=== PATIENT | male | born 2000 | race Caucasian/White ===

== ENCOUNTER 2019-04-15 22:59 | Emergency (ER) | payer BC, OTHER ==
[~2019-04-15] VITALS: Ht 180.3 cm; Wt 79.4 kg
[2019-04-15 23:06] VITALS: Ht 180.3 cm; Wt 79.4 kg
[2019-04-16 00:25] LABS: BASOPHIL % 0.4 % (0-2); PLATELET COUNT 371 x10^3mcL (130-400); RED CELL DISTRIBUTION WIDTH 12.7 % (11.5-14.5)
[2019-04-16 00:38] LABS: CALCIUM 8.9 mg/dL (8.5-10.1); CARBON DIOXIDE 22.3 mmol/L (21-32); CHLORIDE SERUM 107 mmol/L (98-107); CREATININE SERUM 0.8 mg/dL (0.7-1.3); GFR1 > 60 mL/min; GLUCOSE SERUM 106 mg/dL (74-106); POTASSIUM SERUM 3.3 mmol/L (3.5-5.1); SODIUM SERUM 142 mmol/L (136-145)
[2019-04-16 00:58] LABS: ALBUMIN 3.5 g/dL (3.4-5.0); ALKALINE PHOSPHATASE 79 U/L (46-116); ALT/SGPT 59 U/L (16-63); AST/SGOT 30 U/L (15-37); BILIRUBIN TOTAL 0.4 mg/dL (0.20-1.00)
[2019-04-16 01:00] LABS: microscopic required? NO
[2019-04-16 01:06] LABS: UA SPECIFIC GRAVITY <=1.005 (1.005-1.035); urine erythrocyte NEGATIVE (NEGATIVE)
[2019-04-16 01:52] LABS: AMPHETAMINE QUAL UR NEGATIVE (See below)
[2019-04-16 02:11] VITALS: BP 121/81
== END 2019-04-16 02:14 | disposition home or self-care (01) ==
LOC: ED 22:59
PROVIDERS: Specialist
DX: F41.9 Anxiety disorder, unspecified (principal); F19.10 Other psychoactive substance abuse, uncomplicated
CPT/HCPCS: G0480; J1630; J7030